=== PATIENT | female | born 1985 | race Caucasian/White ===

== ENCOUNTER 2018-10-08 13:42 | Emergency (ER) | payer BC, OTHER ==
[~2018-10-08] VITALS: Ht 162.6 cm; Wt 108.9 kg
[~2018-10-08 13:42] MED LIST: ALPR0.5T PO
--- OUTSIDE RECORDS SUMMARY | 2018-10-08 13:50 | XMS REPORT | Continuity of Care Document ---
Author Organization Unknown Address Unknown Allergies There is no data. Medications There is no data. Problems Date Dx Coded Attending Type Code Diagnosis Diagnosed By 01/06/2010 Ot 658.13 01/10/2010 Ot 280.9 01/10/2010 Ot 648.21 01/10/2010 Ot 658.01 01/10/2010 Ot 658.21 01/10/2010 Ot 658.41 01/10/2010 Ot 663.31 01/10/2010 Ot 665.41 01/10/2010 Ot V06.1 01/10/2010 Ot V27.0 01/25/2014 BRIANA QUINONES APRN Ot 300.00 01/25/2014 BRIANA QUINONES APRN Ot 786.59 Procedures There is no data. Results There is no data. Encounters ACCT No. Visit Date/Time Discharge Status Pt. Type Provider Facility Loc./Unit Complaint [id number] 01/25/2014 15:17:00 01/25/2014 17:06:00 DIS Emergency BRIANA QUINONES APRN [facility] [id number] 01/07/2010 22:37:00 Document Registration [id number] 01/06/2010 20:42:00 Document Registration
[2018-10-08 15:45] LABS: BASOPHILS % (AUTO) 1 % (0-10); EOSINOPHILS # (AUTO) 0.2 10^3/uL (0.0-0.3); EOSINOPHILS % (AUTO) 3 % (0-10); HEMATOCRIT 42 % (35-52); LYMPHOCYTES # (AUTO) 1.1 X 10^3 (1.0-4.0); LYMPHOCYTES % (AUTO) 17 % (12-44); MEAN CORPUSCULAR HEMOGLOBIN 29 PG (25-34); MEAN CORPUSCULAR HGB CONC 33 G/DL (32-36); MEAN CORPUSCULAR VOLUME 86 FL (80-99); MEAN PLATELET VOLUME 9.8 FL (7.4-10.4); MONOCYTES # (AUTO) 0.5 X 10^3 (0.0-1.0); MONOCYTES % (AUTO) 8 % (0-12); NEUTROPHILS # (AUTO) 4.4 X 10^3 (1.8-7.8); NEUTROPHILS % (AUTO) 71 % (42-75); PLATELET COUNT 182 10^3/uL (130-400); RED CELL DISTRIBUTION WIDTH 12.5 % (10.0-14.5); WHITE BLOOD COUNT 6.2 10^3/uL (4.3-11.0)
[2018-10-08 15:50] LABS: BUN/CREATININE RATIO 12; CALCIUM 8.7 MG/DL (8.5-10.1); CARBON DIOXIDE 22 MMOL/L (21-32); CHLORIDE 105 MMOL/L (98-107); CREATININE SERUM 0.81 MG/DL (0.60-1.30); GFR ESTIMATED > 60; GLUCOSE 91 MG/DL (70-105); POTASSIUM 3.5 MMOL/L (3.6-5.0); SODIUM 142 MMOL/L (135-145)
[2018-10-08] MEDS ORDERED: SULF1TAB35 PO (16:12)
[2018-10-08] MEDS ORDERED: MUPI22OI2 TP (16:12)
--- NOTE | 2018-10-08 16:23 | ED Integumentary General ---
General Chief Complaint: Skin/Wound Problems Stated Complaint: ABSCESS Source: patient Exam Limitations: no limitations History of Present Illness Date Seen by Provider: October 08, 2018 Time Seen by Provider: 15:00 Initial Comments Patient is a 33-year-old female who presents with left arm pain, swelling and rash after being bit by a spider 2 days ago. Patient states she awoke with a pain sensation left arm found a spider adjacent puncture wound. The spider species was not identified. Patient reports body aches, sweats and low-grade temperature of 99 yesterday and a developing [place] or erythema surrounding the spider bite. The patient was evaluated by her PCP yesterday and given an injection of Rocephin. Symptoms improved today but rashes continued to spread around Central puncture site. Patient was seen by her PCP on reevaluation today and referred to the ED for further workup. No history of MRSA. Patient is not diabetic. No other acute symptoms or complaints. Last menstrual. Was 1 week ago. Severity: mild Location: extremities Possible Cause: insect bite Associated Symptoms: rash Allergies and Home Medications Home Medications Alprazolam 0.5 Mg Tablet, 0.5 MG PO Q8H PRN for ANXIETY Prescribed by: BRIANA QUINONES on 01/25/14 1642 Mupirocin 22 Gm Oint...g., 22 GM TP TID Prescribed by: PEEWEE GUO on 10/08/18 1612 Sulfamethoxazole/Trimethoprim 1 Each Tablet, 1 EACH PO BID Prescribed by: PEEWEE GUO on 10/08/18 1612 Patient Home Medication List Home Medication List Reviewed: Yes Review of Systems Review of Systems Constitutional: see HPI EENTM: see HPI Respiratory: no symptoms reported, see HPI Cardiovascular: no symptoms reported Skin: see HPI Past Ufazequ-Zjnyzh-Ednrxn Hx Past Med/Social Hx: Reviewed Nursing Past Med/Soc Hx Past Medical History Reproductive Disorders: Yes Sexually Transmitted Disease: Yes Physical Exam Vital Signs Capillary Refill : General Appearance: WD/WN, no apparent distress HEENT: PERRL/EOMI Neck: full range of motion Respiratory: lungs clear, normal breath sounds Extremities: other (central puncture wound on medial aspect of proximal bicep , surrounded bicycler patch of erythema, mental skin swelling, no induration, bruising or drainage. No fluctuance. No streaking.) Neurologic/Psychiatric: alert Progress/Results/Core Measures Results/Orders Lab Results Laboratory Tests Test 10/08/18 14:57 10/08/18 15:19 Range/Units Urine Test NEGATIVE NEGATIVE White Blood Count 6.2 4.3-11.0 10^3/uL Red Blood Count 4.89 4.35-5.85 10^6/uL Hemoglobin 14.0 11.5-16.0 G/DL Hematocrit 42 35-52 % Mean Corpuscular Volume 86 80-99 FL Mean Corpuscular Hemoglobin 29 25-34 PG Mean Corpuscular Hemoglobin Concent 33 32-36 G/DL Red Cell Distribution Width 12.5 10.0-14.5 % Platelet Count 182 130-400 10^3/uL Mean Platelet Volume 9.8 7.4-10.4 FL Neutrophils (%) (Auto) 71 42-75 % Lymphocytes (%) (Auto) 17 12-44 % Monocytes (%) (Auto) 8 0-12 % Eosinophils (%) (Auto) 3 0-10 % Basophils (%) (Auto) 1 0-10 % Neutrophils # (Auto) 4.4 1.8-7.8 X 10^3 Lymphocytes # (Auto) 1.1 1.0-4.0 X 10^3 Monocytes # (Auto) 0.5 0.0-1.0 X 10^3 Eosinophils # (Auto) 0.2 0.0-0.3 10^3/uL Basophils # (Auto) 0.0 0.0-0.1 10^3/uL Sodium Level 142 135-145 MMOL/L Potassium Level 3.5 L 3.6-5.0 MMOL/L Chloride Level 105 98-107 MMOL/L Carbon Dioxide Level 22 21-32 MMOL/L Anion Gap 15 H 5-14 MMOL/L Blood Urea Nitrogen 10 7-18 MG/DL Creatinine 0.81 0.60-1.30 MG/DL Estimat Glomerular Filtration Rate > 60 BUN/Creatinine Ratio 12 Glucose Level 91 70-105 MG/DL Calcium Level 8.7 8.5-10.1 MG/DL My Orders Orders - PEEWEE GUO DO Cbc With Automated Diff (10/08/18 14:46) Basic Metabolic Panel (10/08/18 14:46) Urine Bedside (10/08/18 14:46) Hs C Reactive Protein (10/08/18 14:57) Hcg,Qualitative Urine (10/08/18 15:37) Departure Communication (Admissions) No systemic signs currently. Erythema could represent laboratory/chronic process versus soft tissue infection. Patient provided expanded MRSA coverage instructed to crutch rash closely and follow up with PCP later this week for further management. Return cautions reviewed Impression Primary Impression: Cellulitis of left arm Additional Impression: Spider bite Disposition: HOME, SELF-CARE Condition: Improved Departure-Patient Inst. Decision time for Depature: 16:26 Patient Instructions: Cellulitis (Skin Infection), Child (DC) Add. Discharge Instructions: Please wear arm sling and take ibuprofen as needed for pain. Apply topical antibiotics three times daily and take oral antibiotics as directed. Follow-up with your PCP in 2-3 days for reevaluation. Return to the ED if fever, nausea, or other concerning symptoms. All discharge instructions reviewed with patient and/or family. Voiced understanding. Scripts Mupirocin (Mupirocin) 22 Gm Oint...g. 22 GM TP TID, #30 TUBE Prov: PEEWEE GUO DO 10/08/18 Sulfamethoxazole/Trimethoprim (Bactrim Ds Tablet) 1 Each Tablet 1 EACH PO BID, #28 TAB Prov: PEEWEE GUO DO 10/08/18 PEEWEE GUO DO October 08, 2018 16:23
[2018-10-08 16:29] VITALS: BP 123/62
== END 2018-10-08 16:30 | disposition home or self-care (01) ==
LOC: EDUNIT# 13:42 → ER FS 13:44
DX: L03.114 Cellulitis of left upper limb (principal); S40.862D Insect bite (nonvenomous) of left upper arm, subsequent encounter; W57.XXXD Bitten or stung by nonvenomous insect and other nonvenomous arthropods, subsequent encounter
CPT/HCPCS: 36415; 80048; 84703; 85025; 86141; 99282